=== PATIENT | male | born 1960 | race African-American/Black ===

== ENCOUNTER 2022-11-22 19:46 | Emergency (ER) | payer MEDICARE, MEDICAID, SELFPAY ==
--- NOTE | ~2022-11-22 | XR_ITS ---
EXAM: XR shoulder LT min 2V DATE: 11/22/2022 20:17 HISTORY: FELL 11/22/22. LROM SINCE. . COMPARISON: None available. FINDINGS: Decreased mineralization. Transverse nondisplaced fracture of the distal left clavicle. No lytic or blastic lesion. Joint spaces are maintained. No erosion or periosteal change. Soft tissues within normal limits. IMPRESSION: Transverse, nondisplaced fracture of the distal left clavicle. Reviewed, dictated and finalized at location K.
[2022-11-22 19:54] VITALS: BP 136/72; PULSE 72; RESP 20; TEMP 36.7; O2SAT 100
--- NOTE | 2022-11-22 19:57 | ED.UPPEXIN ---
HPI - Extremity Injury (Upper) General Chief Complaint: Extremity Injury, Upper Stated Complaint: left shoulder injury Time Seen by Provider: 11/22/22 19:57 History of Present Illness HPI narrative: patient here with a shoulder injury. Patient tripped over a rug earlier today and landed on his left shoulder. Patient has complained of pain with movement of the shoulder since the incident. Patient has limited range of motion due to pain. No deformity noted no numbness or tingling reported. Related Data Home Medications Medication Instructions Recorded Confirmed atorvastatin 40 mg tablet mg 11/22/22 dorzolamide 22.3 mg-timolol 6.8 11/22/22 mg/mL eye drops fluticasone propionate 50 intranasal 11/22/22 11/22/22 mcg/actuation nasal spray,suspension latanoprost 0.005 % eye drops drp 11/22/22 lisinopril 5 mg tablet mg 11/22/22 sodium bicarbonate 650 mg tablet mg 11/22/22 zonisamide 100 mg capsule mg PO 11/22/22 Allergies Allergy/AdvReac Type Severity Reaction Status Date / Time Penicillins Allergy Unknown Verified 11/22/22 20:22 Review of Systems Review of Systems: CONSTITUTIONAL: Denies fever, chills, or sweats. EYES: Denies visual changes, redness, or discharge. ENT: Denies rhinorrhea, congestion, sore throat, or otalgia. CARDIOVASCULAR: Denies chest pain, palpitations, or edema. RESPIRATORY: Denies cough or dyspnea. GASTROINTESTINAL: Denies abdominal pain, nausea, vomiting, or diarrhea. GENITOURINARY: Denies dysuria or hematuria. SKIN: Denies rash or itching. MUSCULOSKELETAL: Denies back pain, joint pain, or myalgia. NEUROLOGIC: Denies headache, numbness, or weakness. PSYCHIATRIC: Denies anxiety or depression. PMFSH Comments At time of signature, agree with nursing past medical, surgical, social and family history. There is no relevant family history pertinent to the presenting complaint Exam Narrative: GENERAL: Well-appearing, well-nourished, and in no acute distress. HEAD: Normocephalic, atraumatic. EYES: PERRLA and EOMI. ENT: Nares clear, no rhinorrhea or epistaxis. Mucous membranes moist. NECK: Supple. CHEST: Clear to auscultation. No respiratory distress. HEART: Regular rate and rhythm. No murmur heard. Normal peripheral pulses. ABDOMEN: Soft, nontender, nondistended, normal active bowel sounds. EXTREMITIES: Normal range of motion. No edema. NORMAL RADIAL PULSE. NO DEFORMITY OF SHOULDER. mild clavicle TENDERNESS. limited UE SENSATION AND STRENGTH due to pain and discomfort . ROM EVALUATED - CAN RAISE UE ABOVE SHOULDER, CAN ABDUCT, ADDUCT, EXTERNALLY ROTATE AND CAN INTERNALLY ROTATE AND RAISE THUMB UP THE SPINE. NO AC JOINT TENDERNESS, CAN CROSS ARM HORIZONTALLY AND PLACE HAND ON OPPOSITE SHOULDER, NO WINGING OF THE SCAPULA. SUPRASPINATUS APPEARS NORMAL WITH ARMS STRAIGHT OUT AT 30 DEGREES, THUMB DOWN , CAN ABDUCT AGAINST RESISTANCE. SKIN: Warm, dry, no rash. NEURO: No focal deficits. Alert and oriented x3. [place] Coma Scale Eye Opening: Spontaneous 4 [place] Coma Scale Motor: Obeys Commands 6 [place] Coma Scale Verbal: Oriented 5 [place] Coma Scale Total 15 Course Course Level of Care: Express Care Visit Vital Signs Vital signs: Vital Signs Temperature 36.7 C 11/22/22 19:54 Pulse Rate 72 11/22/22 19:54 Respiratory Rate 20 11/22/22 19:54 Blood Pressure 136/72 11/22/22 19:54 Pulse Oximetry 100 11/22/22 19:54 Oxygen Delivery Room Air 11/22/22 19:54 Temperature 36.7 C 11/22/22 19:54 Pulse Rate 72 11/22/22 19:54 Respiratory Rate 20 11/22/22 19:54 Blood Pressure 136/72 11/22/22 19:54 Pulse Oximetry 100 11/22/22 19:54 Oxygen Delivery Room Air 11/22/22 19:54 re exam after sling placement neurovascular intact MDM - Extremity Injury (Upper) Differential Diagnosis Differential diagnosis: Likely sprain and strain of wrist, fracture of wrist, finger sprain, dislocation of finger, Colles' fracture, fracture of hand, dislocation of shoulder,
== END 2022-11-22 20:35 | disposition home or self-care (01) ==
PROVIDERS: Emergency Provider Nurse Practitioner Family
DX: S42.035A Nondisplaced fracture of lateral end of left clavicle, initial encounter for closed fracture (principal); W18.09XA Striking against other object with subsequent fall, initial encounter; E78.00 Pure hypercholesterolemia, unspecified; I10 Essential (primary) hypertension
CPT/HCPCS: 73030; 99214; A4565; G0463